=== PATIENT | male | born 1990 | race Caucasian/White ===

== ENCOUNTER 2016-05-21 07:28 | Emergency (ER) | payer BC ==
[2016-05-21] MEDS ORDERED: PANTOPRAZOLE 40MG TAB (PROTONIX) As Ordered ONE (08:01)
[2016-05-21] MEDS ORDERED: ONDANSETRON 4 MG ORAL DISINTEGRATING TAB (S0181) As Ordered ONE (08:01)
[2016-05-21 08:08] LABS: BASO % 0.3 % (0.0-1.0); EOS # 0.6 K/mm3 (0.0-0.50); EOS % 6.7 % (0.0-3.0); LARGE UNSTAINED CELL # 0.1 K/mm3 (0.0-0.4); LARGE UNSTAINED CELL % 1.1 % (0.0-4.0); LYMPH # 1.4 K/mm3 (1.5-6.5); LYMPH % 14.6 % (24.0-44.0); MEAN CORPUSCULAR HEMOGLOBIN 26.5 pg (27.0-33.0); MEAN CORPUSCULAR VOLUME 82.6 fl (80.0-96.0); MONO # 0.5 K/mm3 (0.0-0.8); MONO % 5.6 % (0.0-5.0); NEUTROPHILS # 6.4 K/mm3 (1.8-7.7); NEUTROPHILS % 71.7 % (36.0-66.0); PLATELET COUNT, AUTOMATED 236 k/mm3 (150-450); RED CELL DISTRIBUTION WIDTH 13.8 % (11.5-14.5); WHITE BLOOD COUNT 8.9 K/mm3 (4.0-10.0)
[2016-05-21 08:25] LABS: ANION GAP 7 MEQ/L (8-16); BLOOD UREA NITROGEN 13 MG/DL (7-18); CALCIUM LEVEL 8.9 MG/DL (8.5-10.1); CARBON DIOXIDE LEVEL 29 MEQ/L (21-32); CHLORIDE LEVEL 108 MEQ/L (98-107); CREATININE FOR GFR 1.15 MG/DL (0.70-1.30); GLOMERULAR FILTRATION RATE > 60.0 (>60); GLUCOSE, FASTING 92 MG/DL (70-105); POTASSIUM SERUM 4.3 MEQ/L (3.5-5.1); SODIUM LEVEL 144 MEQ/L (136-145)
--- NOTE | 2016-05-21 09:03 | EDDOCDS ---
Physician Documentation [facility] Name: Magnus Leary Age: 25 yrs Sex: Male : 1990 Arrival Date: 05/21/2016 Time: 07:28 Bed I5 / M5 Private MD: Disposition: 05/21/16 08:51 Discharged to Home/Self Care. Impression: Gastritis, unspecified, with bleeding, Nausea and vomiting, Diarrhea, unspecified. - Condition is Stable. - Discharge Instructions: Gastritis, Adult, Gastrointestinal Bleeding. - Prescriptions for Protonix 40 mg Oral Tablet, Delayed Release (E.C.) - take 1 tablet by ORAL route once daily; 10 tablet. ZOFRAN ODT 4 mg Oral - dissolve 1 tablet by ORAL route every 6-8 hours As needed do not chew, do not swallow whole; 10 tablet. - Medication Reconciliation, Local Pharmacy Hours form. - Follow up: Emergency Department; When: As needed; Reason: Worsening of conditions, severe abdominal pain, fevers, severe bleeding, lightheadedness. - Problem is new. - Symptoms have improved. Historical: - Allergies: no known allergies; - Home Meds: 1. none - PMHx: Seasonal Allergies; - PSHx: none; - Social history: Smoking status: Patient states was never smoker of tobacco. No barriers to communication noted, Speaks appropriately for age. - : The pt / caregiver states he / she is not on anticoagulants. Home medication list is obtained from the patient. - Exposure Risk Screening:: None identified. Vital Signs: 05/21 07:34 BP 138 / 74; Pulse 85; Resp 16; Temp 96.8(O); Pulse Ox 98% on R/A; Weight 126.1 kg / ml6 278 lbs (R); Height 6 ft. (182.88 cm); Pain 2/10; 09:01 BP 131 / 73; Pulse 74; Resp 18; Temp 96.4(O); Pulse Ox 95% on R/A; Pain 1/10; jjr 07:34 Body Mass Index 37.70 (126.10 kg, 182.88 cm) ml6 MDM: 07:47 Ondansetron ODT Oral Disintegrating Tablet 4 mg PO once ordered. ar2 07:47 Pantoprazole 40 mg PO once ordered. ar2 07:47 Fluid Challenge ordered. ar2 07:48 CBC with Diff Ordered. EDMS 07:48 MED Profile Ordered. EDMS 08:37 [facility] Payment Agreement was scanned into [employer] and attached to record. jp5 08:37 Financial registration complete. jp5 08:46 CBC with Diff Reviewed. ar2 08:46 MED Profile Reviewed. ar2 Administered Medications: 08:03 Drug: Ondansetron ODT 4 mg [ondansetron 4 mg disintegrating tablet (1 tabs)] Route: PO; jjr 08:03 Drug: Pantoprazole 40 mg [pantoprazole 40 mg tablet,delayed release (1 tabs)] Route: PO;jjr Signatures: Dispatcher [employer] EDMS Cassandra Peck RN RN jjr Willis Stover PA-C PA-C ar2 Po Rios, RN RN ml6 Rajesh Velasco jp5 The chart was reviewed and I authenticate all verbal orders and agree with the evaluation and treatment provided.Attachments: 08:37 [facility] Payment Agreement jp5 MTDD
--- NOTE | 2016-05-21 09:03 | EDDOCDS ---
Nurse's Notes [facility] Name: Magnus Leary Age: 25 yrs Sex: Male : 1990 Arrival Date: 05/21/2016 Time: 07:28 Bed I5 / M5 Private MD: Diagnosis: Gastritis, unspecified, with bleeding;Nausea and vomiting;Diarrhea, unspecified Presentation: 05/21 07:33 Presenting complaint: Patient states: states n/v/d since waking this am, states vomited ml6 and notice some streaks of blood in it. Risk factors: the patient reports not having a history of previous torsion. Adult Sepsis Screening: The patient does not have new or worsening altered mentation. Patient's respiratory rate is less than 22. Systolic blood pressure is greater than 100. Patient has a qSOFA score of 0- Negative Sepsis Screen. Suicide/Homicide risk assessment- the patient denies having any suicidal and/or homicidal ideations and does not present with any other emotional, behavioral or mental health complaints. Status: Patient is not a service delivery management consultant or dependent. Transition of care: patient was not received from another setting of care. 07:33 Acuity: TERESA Level 3 ml6 07:33 Method Of Arrival: Walkin/Carried/Asstd ml6 Triage Assessment: 07:35 General: Appears in no apparent distress, Behavior is appropriate for age, cooperative. ml6 Pain: Location: abdomen Pain currently is 2 out of 10 on a pain scale. Pain: Pain does not radiate. Quality of pain is described as crampy, Pain began 2 hours ago Is continuous Alleviated by nothing. HIV screening NA for this visit Offered previously. GI: Abdomen is flat, non- distended Abd is soft and non tender X 4 quads. Reports diarrhea, nausea, vomiting. Historical: - Allergies: no known allergies; - Home Meds: 1. none - PMHx: Seasonal Allergies; - PSHx: none; - Social history: Smoking status: Patient states was never smoker of tobacco. No barriers to communication noted, Speaks appropriately for age. - : The pt / caregiver states he / she is not on anticoagulants. Home medication list is obtained from the patient. - Exposure Risk Screening:: None identified. Screenin:05 Screening information is obtained from the patient. Fall risk: No risks identified. jjr Assistance ADL's: requires no assistance with activities of daily living. Abuse/DV Screen: The patient / caregiver reports he/she is: not in a situation that causes fear, pain or injury. Nutritional screening: No deficits noted. Advance Directives: There is no active DNR order. home support is adequate. Assessment: 08:04 General: Appears in no apparent distress, well nourished, well groomed, Behavior is jjr appropriate for age. Neurological: No deficits noted. Respiratory: No deficits noted. GI: Abdomen is obese, Bowel sounds present X 4 quads. Abd is soft and non tender X 4 quads. Reports one episode of diarrhea since 0500 with improving nausea, general ache to abdomen. Derm: No deficits noted. 09:01 General: Appears in no apparent distress, reports mild nausea tolerated 240 ml jjr gingerale . Vital Signs: 07:34 BP 138 / 74; Pulse 85; Resp 16; Temp 96.8(O); Pulse Ox 98% on R/A; Weight 126.1 kg (R); ml6 Height 6 ft. (182.88 cm); Pain 2/10; 09:01 BP 131 / 73; Pulse 74; Resp 18; Temp 96.4(O); Pulse Ox 95% on R/A; Pain 1/10; jjr 07:34 Body Mass Index 37.70 (126.10 kg, 182.88 cm) ml6 Vitals: 07:34 Log In Time: May 21, 2016 at 07:28. ml6 ED Course: 07:30 Patient visited by Miya Hernández. az 07:30 Patient moved to Waiting az 07:34 Triage Initiated ml6 07:36 Cassandra Peck RN is Primary Nurse. ml6 07:36 Willis Stover PA-C is PHCP. ar2 07:36 Yimi Tapia MD is Attending Physician. ar2 07:36 Patient visited by Willis Stover PA-C. ar2 07:36 Patient moved to I5 / ml6 08:04 MED Profile Sent. jjr 08:05 The patient / caregiver is instructed regarding the plan of care and ED course. jjr 08:06 Patient visited by Cassandra Peck RN. jjr 08:37 [facility] [place] Agreement was scanned into [email or web address] and attached to record. jp5 09:01 No IV's were initiated during this patient's visit. No procedures done that require jjr assistance. Administered Medications: 08:03 Drug: Ondansetron ODT 4 mg [ondansetron 4 mg disintegrating tablet (1 tabs)] Route: PO; jjr 08:03 Drug: Pantoprazole 40 mg [pantoprazole 40 mg tablet,delayed release (1 tabs)] Route: PO;jjr Order Results: Lab Order: CBC with Diff; SPEC'M 05/21/16 07:58 Test: WHITE BLOOD COUNT; Value: 8.9; Range: 4.0-10.0; Units: K/mm3; Status: F Test: RED BLOOD COUNT; Value: 5.84; Range: 4.30-6.10; Units: M/mm3; Status: F Test: HEMOGLOBIN; Value: 15.4; Range: 14.0-18.0; Units: g/dl; Status: F Test: HEMATOCRIT; Value: 48.2; Range: 42.0-52.0; Units: %; Status: F Test: MEAN CORPUSCULAR VOLUME; Value: 82.6; Range: 80.0-96.0; Units: fl; Status: F Test: MEAN CORPUSCULAR HEMOGLOBIN; Value: 26.5; Range: 27.0-33.0; Abnormal: Below low normal; Units: pg; Status: F Test: MEAN CORPUSCULAR HGB CONC; Value: 32.0; Range: 32.0-36.5; Units: g/dl; Status: F Test: RED CELL DISTRIBUTION WIDTH; Value: 13.8; Range: 11.5-14.5; Units: %; Status: F Test: PLATELET COUNT, AUTOMATED; Value: 236; Range: 150-450; Units: k/mm3; Status: F Test: NEUTROPHILS %; Value: 71.7; Range: 36.0-66.0; Abnormal: Above high normal; Units: %; Status: F Test: LYMPH %; Value: 14.6; Range: 24.0-44.0; Abnormal: Below low normal; Units: %; Status: F Test: MONO %; Value: 5.6; Range: 0.0-5.0; Abnormal: Above high normal; Units: %; Status: F Test: EOS %; Value: 6.7; Range: 0.0-3.0; Abnormal: Above high normal; Units: %; Status: F Test: BASO %; Value: 0.3; Range: 0.0-1.0; Units: %; Status: F Test: LARGE UNSTAINED CELL %; Value: 1.1; Range: 0.0-4.0; Units: %; Status: F Test: NEUTROPHILS #; Value: 6.4; Range: 1.8-7.7; Units: K/mm3; Status: F Test: LYMPH #; Value: 1.4; Range: 1.5-6.5; Abnormal: Below low normal; Units: K/mm3; Status: F Test: MONO #; Value: 0.5; Range: 0.0-0.8; Units: K/mm3; Status: F Test: EOS #; Value: 0.6; Range: 0.0-0.50; Abnormal: Above high normal; Units: K/mm3; Status: F Test: BASO #; Value: 0.0; Range: 0.0-0.2; Units: K/mm3; Status: F Test: LARGE UNSTAINED CELL #; Value: 0.1; Range: 0.0-0.4; Units: K/mm3; Status: F Lab Order: [facility]; [facility]' 05/21/16 07:58 Test: GLUCOSE, FASTING; Value: 92; Range: 70-105; Units: MG/DL; Status: F Test: BLOOD UREA NITROGEN; Value: 13; Range: 7-18; Units: MG/DL; Status: F Test: CREATININE FOR GFR; Value: 1.15; Range: 0.70-1.30; Units: MG/DL; Status: F Test: GLOMERULAR FILTRATION RATE; Value: > 60.0; Range: >60; Status: F Test: SODIUM LEVEL; Value: 144; Range: 136-145; Units: MEQ/L; Status: F Test: POTASSIUM SERUM; Value: 4.3; Range: 3.5-5.1; Units: MEQ/L; Status: F Test: CHLORIDE LEVEL; Value: 108; Range: 98-107; Abnormal: Above high normal; Units: MEQ/L; Status: F Test: CARBON DIOXIDE LEVEL; Value: 29; Range: 21-32; Units: MEQ/L; Status: F Test: ANION GAP; Value: 7; Range: 8-16; Abnormal: Below low normal; Units: MEQ/L; Status: F Test: CALCIUM LEVEL; Value: 8.9; Range: 8.5-10.1; Units: MG/DL; Status: F Test Note: ; Units are mL/min/1.73 m2 Chronic Kidney Disease Staging per NKF: Stage I & II GFR >=60 Normal to Mildly Decreased Stage III GFR 30-59 Moderately Decreased Stage IV GFR 15-29 Severely Decreased Stage V GFR <15 Very Little GFR Left ESRD GFR <15 on OFFICE SUPPORT ASSISTANT Outcome: 08:51 Discharge ordered by Provider. ar2 09:02 Discharge Assessment: patient administered narcotics - no. The following High Risk jjr Discharge criteria are identified: None. Discharged to home ambulatory, with significant other. Condition: stable. Discharge instructions given to patient, Instructed on discharge instructions, follow up and referral plans. medication usage, diet, Demonstrated understanding of instructions, medications, Prescriptions given X 2. No special radiology studies were completed. Property sent home with patient. 09:02 Patient left the ED. jjr Signatures: Cassandra Peck, RN RN jjr Willis Stover PARyann PARyann ar2 Po Rios, RN RN ml6 Rajesh Velasco 5 Miya Hernández MTDD
--- NOTE | 2016-05-23 10:03 | EDDOCDS ---
Physician Documentation [facility] Name: Magnus Leary Age: 25 yrs Sex: Male : 1990 Arrival Date: 05/21/2016 Time: 07:28 Bed I5 / M5 Private MD: Disposition: 05/21/16 08:51 Discharged to Home/Self Care. Impression: Gastritis, unspecified, with bleeding, Nausea and vomiting, Diarrhea, unspecified. - Condition is Stable. - Discharge Instructions: Gastritis, Adult, Gastrointestinal Bleeding. - Prescriptions for Protonix 40 mg Oral Tablet, Delayed Release (E.C.) - take 1 tablet by ORAL route once daily; 10 tablet. ZOFRAN ODT 4 mg Oral - dissolve 1 tablet by ORAL route every 6-8 hours As needed do not chew, do not swallow whole; 10 tablet. - Medication Reconciliation, Local Pharmacy Hours form. - Follow up: Emergency Department; When: As needed; Reason: Worsening of conditions, severe abdominal pain, fevers, severe bleeding, lightheadedness. - Problem is new. - Symptoms have improved. Historical: - Allergies: no known allergies; - Home Meds: 1. none - PMHx: Seasonal Allergies; - PSHx: none; - Social history: Smoking status: Patient states was never smoker of tobacco. No barriers to communication noted, Speaks appropriately for age. - : The pt / caregiver states he / she is not on anticoagulants. Home medication list is obtained from the patient. - Exposure Risk Screening:: None identified. Vital Signs: 05/21 07:34 BP 138 / 74; Pulse 85; Resp 16; Temp 96.8(O); Pulse Ox 98% on R/A; Weight 126.1 kg / ml6 278 lbs (R); Height 6 ft. (182.88 cm); Pain 2/10; 09:01 BP 131 / 73; Pulse 74; Resp 18; Temp 96.4(O); Pulse Ox 95% on R/A; Pain 1/10; jjr 07:34 Body Mass Index 37.70 (126.10 kg, 182.88 cm) ml6 MDM: 07:47 Ondansetron ODT Oral Disintegrating Tablet 4 mg PO once ordered. ar2 07:47 Pantoprazole 40 mg PO once ordered. ar2 07:47 Fluid Challenge ordered. ar2 07:48 CBC with Diff Ordered. EDMS 07:48 MED Profile Ordered. EDMS 08:37 [facility] Payment Agreement was scanned into [employer] and attached to record. jp5 08:37 Financial registration complete. jp5 08:46 CBC with Diff Reviewed. ar2 08:46 MED Profile Reviewed. ar2 14:07 T-Sheet-- Draft Copy was scanned into [employer] and attached to record. klr Administered Medications: 08:03 Drug: Ondansetron ODT 4 mg [ondansetron 4 mg disintegrating tablet (1 tabs)] Route: PO; jjr 08:03 Drug: Pantoprazole 40 mg [pantoprazole 40 mg tablet,delayed release (1 tabs)] Route: PO;jjr Signatures: Dispatcher [employer] Cassandra Neves, RN RN jjr Willis Stover PA-C PA-C ar2 Po Rios RN RN ml6 Rajesh Velasco jp5 Kimberly Romanr The chart was reviewed and I authenticate all verbal orders and agree with the evaluation and treatment provided.Attachments: 08:37 [facility] Payment Agreement jp5 14:07 T-Sheet-- Draft Copy klr Chart Complete MTDD
--- NOTE | 2016-05-23 10:03 | EDDOCDS ---
Nurse's Notes [facility] Name: Magnus Leary Age: 25 yrs Sex: Male : 1990 Arrival Date: 05/21/2016 Time: 07:28 Bed I5 / M5 Private MD: Diagnosis: Gastritis, unspecified, with bleeding;Nausea and vomiting;Diarrhea, unspecified Presentation: 05/21 07:33 Presenting complaint: Patient states: states n/v/d since waking this am, states vomited ml6 and notice some streaks of blood in it. Risk factors: the patient reports not having a history of previous torsion. Adult Sepsis Screening: The patient does not have new or worsening altered mentation. Patient's respiratory rate is less than 22. Systolic blood pressure is greater than 100. Patient has a qSOFA score of 0- Negative Sepsis Screen. Suicide/Homicide risk assessment- the patient denies having any suicidal and/or homicidal ideations and does not present with any other emotional, behavioral or mental health complaints. Status: Patient is not a automotive service professional or dependent. Transition of care: patient was not received from another setting of care. 07:33 Acuity: TERESA Level 3 ml6 07:33 Method Of Arrival: Walkin/Carried/Asstd ml6 Triage Assessment: 07:35 General: Appears in no apparent distress, Behavior is appropriate for age, cooperative. ml6 Pain: Location: abdomen Pain currently is 2 out of 10 on a pain scale. Pain: Pain does not radiate. Quality of pain is described as crampy, Pain began 2 hours ago Is continuous Alleviated by nothing. HIV screening NA for this visit Offered previously. GI: Abdomen is flat, non- distended Abd is soft and non tender X 4 quads. Reports diarrhea, nausea, vomiting. Historical: - Allergies: no known allergies; - Home Meds: 1. none - PMHx: Seasonal Allergies; - PSHx: none; - Social history: Smoking status: Patient states was never smoker of tobacco. No barriers to communication noted, Speaks appropriately for age. - : The pt / caregiver states he / she is not on anticoagulants. Home medication list is obtained from the patient. - Exposure Risk Screening:: None identified. Screenin:05 Screening information is obtained from the patient. Fall risk: No risks identified. jjr Assistance ADL's: requires no assistance with activities of daily living. Abuse/DV Screen: The patient / caregiver reports he/she is: not in a situation that causes fear, pain or injury. Nutritional screening: No deficits noted. Advance Directives: There is no active DNR order. home support is adequate. Assessment: 08:04 General: Appears in no apparent distress, well nourished, well groomed, Behavior is jjr appropriate for age. Neurological: No deficits noted. Respiratory: No deficits noted. GI: Abdomen is obese, Bowel sounds present X 4 quads. Abd is soft and non tender X 4 quads. Reports one episode of diarrhea since 0500 with improving nausea, general ache to abdomen. Derm: No deficits noted. 09:01 General: Appears in no apparent distress, reports mild nausea tolerated 240 ml jjr gingerale . Vital Signs: 07:34 BP 138 / 74; Pulse 85; Resp 16; Temp 96.8(O); Pulse Ox 98% on R/A; Weight 126.1 kg (R); ml6 Height 6 ft. (182.88 cm); Pain 2/10; 09:01 BP 131 / 73; Pulse 74; Resp 18; Temp 96.4(O); Pulse Ox 95% on R/A; Pain 1/10; jjr 07:34 Body Mass Index 37.70 (126.10 kg, 182.88 cm) ml6 Vitals: 07:34 Log In Time: May 21, 2016 at 07:28. ml6 ED Course: 07:30 Patient visited by Miya Hernández. az 07:30 Patient moved to Waiting az 07:34 Triage Initiated ml6 07:36 Cassandra Peck RN is Primary Nurse. ml6 07:36 Willis Stover PA-C is PHCP. ar2 07:36 Yimi Tapia MD is Attending Physician. ar2 07:36 Patient visited by Willis Stover PA-C. ar2 07:36 Patient moved to I5 / ml6 08:04 MED Profile Sent. jjr 08:05 The patient / caregiver is instructed regarding the plan of care and ED course. jjr 08:06 Patient visited by Cassandra Peck RN. jjr 08:37 [facility] [place] Agreement was scanned into [employer] and attached to record. jp5 09:01 No IV's were initiated during this patient's visit. No procedures done that require jjr assistance. 14:07 T-Sheet-- Draft Copy was scanned into [employer] and attached to record. klr Administered Medications: 08:03 Drug: Ondansetron ODT 4 mg [ondansetron 4 mg disintegrating tablet (1 tabs)] Route: PO; jjr 08:03 Drug: Pantoprazole 40 mg [pantoprazole 40 mg tablet,delayed release (1 tabs)] Route: PO;jjr Order Results: Lab Order: CBC with Diff; SPEC'M 05/21/16 07:58 Test: WHITE BLOOD COUNT; Value: 8.9; Range: 4.0-10.0; Units: K/mm3; Status: F Test: RED BLOOD COUNT; Value: 5.84; Range: 4.30-6.10; Units: M/mm3; Status: F Test: HEMOGLOBIN; Value: 15.4; Range: 14.0-18.0; Units: g/dl; Status: F Test: HEMATOCRIT; Value: 48.2; Range: 42.0-52.0; Units: %; Status: F Test: MEAN CORPUSCULAR VOLUME; Value: 82.6; Range: 80.0-96.0; Units: fl; Status: F Test: MEAN CORPUSCULAR HEMOGLOBIN; Value: 26.5; Range: 27.0-33.0; Abnormal: Below low normal; Units: pg; Status: F Test: MEAN CORPUSCULAR HGB CONC; Value: 32.0; Range: 32.0-36.5; Units: g/dl; Status: F Test: RED CELL DISTRIBUTION WIDTH; Value: 13.8; Range: 11.5-14.5; Units: %; Status: F Test: PLATELET COUNT, AUTOMATED; Value: 236; Range: 150-450; Units: k/mm3; Status: F Test: NEUTROPHILS %; Value: 71.7; Range: 36.0-66.0; Abnormal: Above high normal; Units: %; Status: F Test: LYMPH %; Value: 14.6; Range: 24.0-44.0; Abnormal: Below low normal; Units: %; Status: F Test: MONO %; Value: 5.6; Range: 0.0-5.0; Abnormal: Above high normal; Units: %; Status: F Test: EOS %; Value: 6.7; Range: 0.0-3.0; Abnormal: Above high normal; Units: %; Status: F Test: BASO %; Value: 0.3; Range: 0.0-1.0; Units: %; Status: F Test: LARGE UNSTAINED CELL %; Value: 1.1; Range: 0.0-4.0; Units: %; Status: F Test: NEUTROPHILS #; Value: 6.4; Range: 1.8-7.7; Units: K/mm3; Status: F Test: LYMPH #; Value: 1.4; Range: 1.5-6.5; Abnormal: Below low normal; Units: K/mm3; Status: F Test: MONO #; Value: 0.5; Range: 0.0-0.8; Units: K/mm3; Status: F Test: EOS #; Value: 0.6; Range: 0.0-0.50; Abnormal: Above high normal; Units: K/mm3; Status: F Test: BASO #; Value: 0.0; Range: 0.0-0.2; Units: K/mm3; Status: F Test: LARGE UNSTAINED CELL #; Value: 0.1; Range: 0.0-0.4; Units: K/mm3; Status: F Lab Order: [facility]; [facility]' 05/21/16 07:58 Test: GLUCOSE, FASTING; Value: 92; Range: 70-105; Units: MG/DL; Status: F Test: BLOOD UREA NITROGEN; Value: 13; Range: 7-18; Units: MG/DL; Status: F Test: CREATININE FOR GFR; Value: 1.15; Range: 0.70-1.30; Units: MG/DL; Status: F Test: GLOMERULAR FILTRATION RATE; Value: > 60.0; Range: >60; Status: F Test: SODIUM LEVEL; Value: 144; Range: 136-145; Units: MEQ/L; Status: F Test: POTASSIUM SERUM; Value: 4.3; Range: 3.5-5.1; Units: MEQ/L; Status: F Test: CHLORIDE LEVEL; Value: 108; Range: 98-107; Abnormal: Above high normal; Units: MEQ/L; Status: F Test: CARBON DIOXIDE LEVEL; Value: 29; Range: 21-32; Units: MEQ/L; Status: F Test: ANION GAP; Value: 7; Range: 8-16; Abnormal: Below low normal; Units: MEQ/L; Status: F Test: CALCIUM LEVEL; Value: 8.9; Range: 8.5-10.1; Units: MG/DL; Status: F Test Note: ; Units are mL/min/1.73 m2 Chronic Kidney Disease Staging per NKF: Stage I & II GFR >=60 Normal to Mildly Decreased Stage III GFR 30-59 Moderately Decreased Stage IV GFR 15-29 Severely Decreased Stage V GFR <15 Very Little GFR Left ESRD GFR <15 on [employer]ILDING Outcome: 08:51 Discharge ordered by Provider. ar2 09:02 Discharge Assessment: patient administered narcotics - no. The following High Risk jjr Discharge criteria are identified: None. Discharged to home ambulatory, with significant other. Condition: stable. Discharge instructions given to patient, Instructed on discharge instructions, follow up and referral plans. medication usage, diet, Demonstrated understanding of instructions, medications, Prescriptions given X 2. No special radiology studies were completed. Property sent home with patient. 09:02 Patient left the ED. jjr Signatures: Cassandra Peck, RN RN Willis Oliver, PA-C PA-C ar2 Po Rios RN RN [id number] Rajesh Velasco Abigail az Redder, Kathie klr Chart Complete MTDJackie
--- NOTE | 2016-05-23 10:03 | EDDOCDS ---
Physician Documentation [facility] Name: Magnus Leary Age: 25 yrs Sex: Male : 1990 Arrival Date: 05/21/2016 Time: 07:28 Bed I5 / M5 Private MD: Disposition: 05/21/16 08:51 Discharged to Home/Self Care. Impression: Gastritis, unspecified, with bleeding, Nausea and vomiting, Diarrhea, unspecified. - Condition is Stable. - Discharge Instructions: Gastritis, Adult, Gastrointestinal Bleeding. - Prescriptions for Protonix 40 mg Oral Tablet, Delayed Release (E.C.) - take 1 tablet by ORAL route once daily; 10 tablet. ZOFRAN ODT 4 mg Oral - dissolve 1 tablet by ORAL route every 6-8 hours As needed do not chew, do not swallow whole; 10 tablet. - Medication Reconciliation, Local Pharmacy Hours form. - Follow up: Emergency Department; When: As needed; Reason: Worsening of conditions, severe abdominal pain, fevers, severe bleeding, lightheadedness. - Problem is new. - Symptoms have improved. Historical: - Allergies: no known allergies; - Home Meds: 1. none - PMHx: Seasonal Allergies; - PSHx: none; - Social history: Smoking status: Patient states was never smoker of tobacco. No barriers to communication noted, Speaks appropriately for age. - : The pt / caregiver states he / she is not on anticoagulants. Home medication list is obtained from the patient. - Exposure Risk Screening:: None identified. Vital Signs: 05/21 07:34 BP 138 / 74; Pulse 85; Resp 16; Temp 96.8(O); Pulse Ox 98% on R/A; Weight 126.1 kg / ml6 278 lbs (R); Height 6 ft. (182.88 cm); Pain 2/10; 09:01 BP 131 / 73; Pulse 74; Resp 18; Temp 96.4(O); Pulse Ox 95% on R/A; Pain 1/10; jjr 07:34 Body Mass Index 37.70 (126.10 kg, 182.88 cm) ml6 MDM: 07:47 Ondansetron ODT Oral Disintegrating Tablet 4 mg PO once ordered. ar2 07:47 Pantoprazole 40 mg PO once ordered. ar2 07:47 Fluid Challenge ordered. ar2 07:48 CBC with Diff Ordered. EDMS 07:48 MED Profile Ordered. EDMS 08:37 [facility] Payment Agreement was scanned into [employer] and attached to record. jp5 08:37 Financial registration complete. jp5 08:46 CBC with Diff Reviewed. ar2 08:46 MED Profile Reviewed. ar2 14:07 T-Sheet-- Draft Copy was scanned into [employer] and attached to record. klr Administered Medications: 08:03 Drug: Ondansetron ODT 4 mg [ondansetron 4 mg disintegrating tablet (1 tabs)] Route: PO; jjr 08:03 Drug: Pantoprazole 40 mg [pantoprazole 40 mg tablet,delayed release (1 tabs)] Route: PO;jjr Signatures: Dispatcher [employer] Cassandra Neves, RN RN jjr Willis Stover PA-C PA-C ar2 [place] RN RN ml6 Rajesh Velasco jp5 Kimberly Romanr The chart was reviewed and I authenticate all verbal orders and agree with the evaluation and treatment provided.Attachments: 08:37 [facility] Payment Agreement jp5 14:07 T-Sheet-- Draft Copy klr Chart Complete MTDD
== END 2016-05-21 09:02 | disposition home or self-care (01) ==
LOC: M ED 07:28
DX: K29.71 Gastritis, unspecified, with bleeding (principal); J30.2 Other seasonal allergic rhinitis

== ENCOUNTER → 2017-06-26 | Outpatient (REF) | payer BC | LOC: M SMT 13:12 | DX: Z30.2 Encounter for sterilization (principal) | CPT/HCPCS: 88302 ==

== ENCOUNTER → 2017-09-18 | Outpatient (REF) | payer BC | LOC: M LAB REF 13:45 | DX: J02.9 Acute pharyngitis, unspecified (principal) | CPT/HCPCS: 87081 ==

== ENCOUNTER → 2018-05-08 | Outpatient (REF) | payer BC | LOC: M LAB REF 16:52 | PROVIDERS: ATTEND Internal Medicine | DX: N52.9 Male erectile dysfunction, unspecified (principal) ==

== ENCOUNTER 2018-11-28 11:22 | Emergency (ER) | payer BC, OTHER ==
[~2018-11-28] VITALS: Ht 182.9 cm; Wt 125.0 kg
[2018-11-28] MEDS ORDERED: ONDANSETRON 4 MG ORAL DISINTEGRATING TAB (Q0162 PER 1MG) PO ONE (12:00)
[2018-11-28] MEDS ORDERED: LIDOCAINE W/EPINEPHRINE 1% 20ML VIAL SC ONE (13:15)
[2018-11-28] MEDS ORDERED: KEFL500C17 PO (13:40)
[2018-11-28 13:55] VITALS: BP 117/59
--- NOTE | 2018-11-28 14:13 | REP ---
REASON FOR EXAM: Laceration to the second digit. FINDINGS: The joint spaces are symmetric and relatively well maintained. There is no evidence of acute fracture or destructive osseous lesion. IMPRESSION: Negative. Electronically Signed by Tremayne Canas DO 11/28/2018 02:19 P
[2018-12-19] MEDS ORDERED: ZYRTTAB8 PO (12:39)
[2018-12-19] MEDS ORDERED: CETI-36 PO (12:40)
== END 2018-11-28 13:57 | disposition home or self-care (01) ==
LOC: M ED 11:22
DX: S61.411A Laceration without foreign body of right hand, initial encounter (principal); W26.8XXA Contact with other sharp object(s), not elsewhere classified, initial encounter; Y92.513 Shop (commercial) as the place of occurrence of the external cause; Y93.89 Activity, other specified; Y99.0 Civilian activity done for income or pay
CPT/HCPCS: 12001; 73130; 99283; Q0162

== ENCOUNTER 2018-12-05 16:05 | Emergency (ER) | payer OTHER, BC ==
[~2018-12-05] VITALS: Ht 182.9 cm; Wt 131.2 kg
[~2018-12-05 16:05] MED LIST: KEFL500C17 PO
[2018-12-05 17:37] VITALS: BP 132/80
[2018-12-19] MEDS ORDERED: ZYRTTAB8 PO (12:39)
[2018-12-19] MEDS ORDERED: CETI-36 PO (12:40)
== END 2018-12-05 17:39 | disposition home or self-care (01) ==
LOC: M ED 16:05
DX: Z48.00 Encounter for change or removal of nonsurgical wound dressing (principal)

== ENCOUNTER 2018-12-12 12:43 | Emergency (ER) | payer OTHER, BC ==
[~2018-12-12] VITALS: Ht 182.9 cm; Wt 125.0 kg
[2018-12-12 12:44] VITALS: BP 130/80
[2018-12-19] MEDS ORDERED: ZYRTTAB8 PO (12:39)
[2018-12-19] MEDS ORDERED: CETI-36 PO (12:40)
== END 2018-12-12 13:25 | disposition home or self-care (01) ==
LOC: M ED 12:43
DX: Z48.02 Encounter for removal of sutures (principal)

== ENCOUNTER 2018-12-22 10:04 | Day surgery (SDC) | payer OTHER ==
[~2018-12-22] VITALS: Ht 188 cm; Wt 128.8 kg
[~2018-12-22 10:04] MED LIST changes: +CETI-36 PO; +ZYRTTAB8 PO
[2018-12-22] MEDS ORDERED: ONDANSETRON 4MG/2ML VIAL (J2405) As Ordered ONE (10:05)
[2018-12-22] MEDS ORDERED: PROPOFOL 500 MG/50 ML VIAL As Ordered ONE (10:05)
[2018-12-22] MEDS ORDERED: MIDAZOLAM INJ 2 MG/2 ML VIAL (J2250) As Ordered ONE (10:05)
[2018-12-22] MEDS ORDERED: dexameTHASONE 4 MG/ML 1ML VIAL (J1100) As Ordered ONE (10:05)
[2018-12-22] MEDS ORDERED: fentaNYL 100 MCG/2 ML INJECTION (J3010) As Ordered ONE (10:05)
[2018-12-22] MEDS ORDERED: ceFAZolin 2 GM/D5W 50 ML IV BAG (J0690 PER 500MG) As Ordered ONE (10:21)
[2018-12-22] MEDS ORDERED: BUPIVACAINE/EPIN 0.25% 30 ML VIAL As Ordered ONE (11:13)
[2018-12-22] MEDS ORDERED: LIDOCAINE 2% INJ 100 MG/5 ML SDV (FOR ANES.) As Ordered ONE (11:14)
[2018-12-22] MEDS ORDERED: ROCURONIUM BROMIDE 50 MG/5 ML VIAL As Ordered ONE (11:26)
[2018-12-22] MEDS ORDERED: KETOROLAC 60 MG/2 ML VIAL (J1885) As Ordered ONE (12:21)
[2018-12-22] MEDS ORDERED: MORPHINE 4 MG/ML 1ML VIAL/SYRINGE (J2270) IV PRN (13:15)
[2018-12-22] MEDS ORDERED: PERCOCET 5MG/325MG TAB PO PRN (13:15)
[2018-12-22] MEDS ORDERED: LR 1,000 ML IV SCH (13:15)
[2018-12-22] MEDS ORDERED: oxyCODONE 5MG TAB PO PRN ×2 (13:15)
[2018-12-22] MEDS ORDERED: ONDANSETRON 4MG/2ML VIAL (J2405) IV PRN (13:15)
[2018-12-22 14:25] VITALS: BP 132/76
--- NOTE | 2018-12-23 11:52 | RO ---
DATE OF SURGERY: 12/22/2018 PREOPERATIVE DIAGNOSES: Right index finger radial digital nerve injury. Right index finger ulnar digital nerve injury. 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 PROCEDURES: Right index finger radial digital nerve neurolysis. 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 Right index finger radial digital nerve repair with conduit. Right index finger neurolysis ulnar digital nerve. SURGEON: Macho Hensley MD ASSISTANTS: None. BLOOD LOSS: Minimal. IMPLANTS: AxoGen conduit 3 x 15 mm. ANTIBIOTICS: 2 grams Ancef. ANESTHESIA: General. INDICATION: This is a pleasant 28-year-old male who suffered a work-related injury, laceration on the palm of his hand overlying the metacarpophalangeal (MCP) of the index finger. Since then, he has had diminished sensation in the radial half of his index finger, along with the ulnar half, as well. However, the ulnar half started to improve until the day of surgery. All risks and benefits were discussed, including but not limited to damage to surrounding structures, infection, nonrecurrence of feeling, and neuroma. We discussed that the main goal of surgery was to prevent neuroma development, and he may or may not regain sensation. The patient expressed understanding and agreement with this plan. PROCEDURE DESCRIPTION: The patient was brought back to the operating room (OR), supine onto the operating table, underwent general anesthesia, at which point the right arm was prepped and draped in the usual fashion, at which point we did surgical time-out, confirming site, side, surgery, and patient. Once all in agreeance, we made a sharp incision extending to his previous laceration and then along the mid axial border of the radial aspect of his index finger and proximally in a Praveena fashion towards the patient's thumb. We identified the flexor digitorum and flexor profundus and superficialis intact. We isolated the ulnar digital nerve dura lysing it from scar tissue, which it was in-continuity and healthy-appearing. No sign of any neuroma developing, which is in concordance with his preoperative examination. We then isolated the radial digital nerve, which had evidence of a [id number]. There was a large neuroma that had a woody texture to it about 3 or 4 mm in length. At this point, we excised the neuroma and kept excising tissue until we reached healthy appearing nerve ends. Once we reached healthy nerve ends, the total deficit was about 8 mm. Due to this deficit and need for a untensioned repair, we decided to proceed with AxoGen conduit graft 3 mm x 15 mm product. This was then sutured into place with 8-0 nylon. Two sutures in the proximal and two sutures at the distal end, inserting the nerve end into the AxoGen conduit. We were very happy with this development, at which point the wound was thoroughly irrigated and debrided and enclosed with 3-0 nylon. The patient was placed in an intrinsic plus splint with slight flexion of the wrist. The patient was then awakened from anesthesia and taken to the postanesthesia care unit (PACU) in stable condition. POSTOPERATIVE PLAN: The patient will be seen in the office about 2 weeks out from surgery, at which point we will likely have him mobilize immediately due to the lack of tension on the repair. We will monitor for any nerve recovery. REI
== END 2018-12-22 14:50 | disposition home or self-care (01) ==
LOC: M SDC 10:04
PROVIDERS: ATTEND Orthopaedic Surgery Hand Surgery
DX: S64.490A Injury of digital nerve of right index finger, initial encounter (principal); Y92.89 Other specified places as the place of occurrence of the external cause; Y99.0 Civilian activity done for income or pay; Y93.89 Activity, other specified
CPT/HCPCS: 64702; 64776; 64910; C1762; J0690; J1100; J1885; J2250; J2405; J3010

== ENCOUNTER → 2020-03-08 | Outpatient (CLI) | payer SELFPAY | LOC: M LABSMTC 12:50 | PROVIDERS: ATTEND Pediatrics | DX: Z20.828 Contact with and (suspected) exposure to other viral communicable diseases (principal) ==

== ENCOUNTER → 2020-05-23 | Outpatient (REF) | payer BC ==
[2020-05-24 14:41] LABS: HEPATITIS A ANTIBODY IGM NEGATIVE (NEGATIVE); HEPATITIS B CORE ANTIBODY IGM NEGATIVE (NEGATIVE); HEPATITIS B SURFACE ANTIGEN NEGATIVE (NEGATIVE); HEPATITIS C VIRUS ABY INDEX 0.1 INDEX (<0.8)
== END ==
LOC: M LAB REF 12:11
PROVIDERS: ATTEND Internal Medicine
DX: R74.8 Abnormal levels of other serum enzymes (principal)

== ENCOUNTER 2020-12-13 08:45 | Emergency (ER) | payer BC ==
[~2020-12-13] VITALS: Ht 182.9 cm; Wt 133.4 kg
[2020-12-13 08:58] VITALS: BP 120/69
[2020-12-13] MEDS ORDERED: SERT50TA29 (09:01)
[2020-12-13] MEDS ORDERED: NS 1,000 ML IV ONE (12:00)
[2020-12-13] MEDS ORDERED: ONDANSETRON 4MG/2ML VIAL IV ONE (12:00)
[2020-12-13] MEDS ORDERED: KETOROLAC 30 MG/ML 1ML VIAL IV ONE (12:00)
[2020-12-13 12:50] LABS: BASO # 0.1 10^3/uL (0.0-0.2); BASO % 0.6 % (0.0-1.0); EOS # 0.4 10^3/uL (0.0-0.5); EOS % 4.8 % (0.0-3.0); HEMOGLOBIN 14.9 g/dl (13.5-17.5); LYMPH # 2.2 10^3/uL (1.5-5.0); LYMPH % 25.6 % (24.0-44.0); MEAN CORPUSCULAR HEMOGLOBIN 26.4 pg (27.0-33.0); MEAN CORPUSCULAR HGB CONC 31.7 g/dl (32.0-36.5); MEAN CORPUSCULAR VOLUME 83.2 fl (80.0-96.0); MONO # 0.7 10^3/uL (0.0-0.8); MONO % 7.8 % (2.0-8.0); NEUTROPHILS # 5.2 10^3/uL (1.5-8.5); PLATELET COUNT, AUTOMATED 278 10^3/uL (150-450); RED BLOOD COUNT 5.65 10^6/uL (4.30-6.10); WHITE BLOOD COUNT 8.5 10^3/uL (4.0-10.0)
[2020-12-13 13:17] LABS: ALBUMIN 3.4 GM/DL (3.2-5.2); ALT/SGPT 68 U/L (12-78); BILIRUBIN,DIRECT 0.2 MG/DL (0.0-0.2); BILIRUBIN,TOTAL 0.5 MG/DL (0.2-1.0); CK-MB VALUE MASS 1.9 NG/ML (<3.6); CPK CREATINE PHOSPHOKINASE 199 U/L (39-308); LIPASE 140 U/L (73-393); MB/CK RELATIVE INDEX 0.95 (< OR =4); TROPONIN I < 0.02 NG/ML (< 0.10)
--- NOTE | 2020-12-13 13:27 | REP ---
INDICATION: ruq pain. COMPARISON: None. TECHNIQUE: Right upper quadrant sonography. FINDINGS: Scanning through the right upper quadrant of the abdomen demonstrates a normal sized, thin-walled gallbladder without evidence of stone or polyp. There is mild tenderness to scanning over the gallbladder common bile duct is normal measuring 0.5 cm in greatest diameter. No focal liver lesion is seen. Liver size is normal. Liver is felt to be somewhat hyperechoic question fatty infiltration. There is some evidence of fat sparing near the gallbladder. No pancreatic abnormality is observed. No right renal abnormality is seen. There is no evidence of ascites. The right kidney measures 13.6 x 5.7 x 5.8 cm. IMPRESSION: Question mild fatty infiltration of the liver. Otherwise negative right upper quadrant sonography. <Electronically signed by Kane Charles > 12/13/20 0130
--- NOTE | 2020-12-13 14:15 | REP ---
INDICATION: chest pain COMPARISON: None. TECHNIQUE: PA/Lateral FINDINGS: Lungs: Clear, no infiltrate. Heart: Normal in size. Mediastinum: Mediastinal silhouette unremarkable. Pleural angles: Unremarkable.. Bones and soft tissues: Unremarkable. IMPRESSION: No acute pulmonary disease. <Electronically signed by Kendrick Matamoros > 12/13/20 0614
--- NOTE | 2020-12-13 15:57 | ECGEPIP ---
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
[2020-12-13 16:17] LABS: INR 1.07; PROTHROMBIN TIME 14.3 SECONDS (12.7-14.5)
[2020-12-13] MEDS ORDERED: ISOVUE-370 76% 100ML VIAL As Ordered ONE (16:45)
--- NOTE | 2020-12-13 17:23 | REPVR ---
PROCEDURE INFORMATION: Exam: CTA Chest With Contrast Exam date and time: 12/13/2020 5:10 PM Age: 30 years old Clinical indication: Pain; Chest pressure; Additional info: Elevated dimer/cp TECHNIQUE: Imaging protocol: Computed tomographic angiography of the chest with contrast. 3D rendering (Not supervised by radiologist): MIP and/or 3D reconstructed images were created by the technologist. Radiation optimization: All CT scans at this facility use at least one of these dose optimization techniques: automated exposure control; mA and/or kV adjustment per patient size (includes targeted exams where dose is matched to clinical indication); or iterative reconstruction. Contrast material: ISOVUE 370; Contrast volume: 75 ml; Contrast route: INTRAVENOUS (IV); COMPARISON: CR Chest, 2 view PA, Lat 12/13/2020 1:49 PM FINDINGS: Pulmonary arteries: Normal. No pulmonary emboli. Aorta: Unremarkable. No aortic aneurysm. No aortic dissection. Lungs: Unremarkable. No consolidation. No masses. Pleural spaces: There are trace bilateral pleural effusions. Heart: Unremarkable. No cardiomegaly. No pericardial effusion. Lymph nodes: Unremarkable. No enlarged lymph nodes. Liver: There is a very fatty liver in the upper abdomen. Bones/joints: Unremarkable. No acute fracture. Soft tissues: Unremarkable. IMPRESSION: 1. Bilateral trace effusions. 2. No pulmonary emboli. Electronically signed by: Waldemar Gregory On 12/13/2020 17:22:50 PM
[2020-12-13 18:13] LABS: NT-PRO BNP 175 PG/ML (<125)
[2020-12-13] MEDS ORDERED: KETO10TAB PO (18:45)
== END 2020-12-13 19:20 | disposition home or self-care (01) ==
LOC: M ED 08:45
DX: J90 Pleural effusion, not elsewhere classified (principal); R07.9 Chest pain, unspecified; R10.11 Right upper quadrant pain; I45.10 Unspecified right bundle-branch block; R00.1 Bradycardia, unspecified
CPT/HCPCS: 36415; 71046; 71275; 76705; 80047; 80076; 82550; 82553; 83690; 83880; 84484; 85025; 85379; 85610; 85730; 93005; 96361; 96374; 99284; J1885; J2405; Q9967